=== PATIENT | male | born 1970 | race Caucasian/White ===

== ENCOUNTER 2021-03-06 01:33 | Outpatient (CLI) | payer BC, SELFPAY ==
--- NOTE | 2021-03-06 | DI.US_ITS ---
Exam(s) US RENAL EXAM: US RENAL CLINICAL HISTORY: NEPHROLITHIASIS, N20.0 TECHNIQUE: Ultrasound of both kidneys performed using standard protocol. COMPARISON: No exams were available for comparison FINDINGS: RIGHT KIDNEY: Measures 13.9 cm in length. No cysts evident. Normal cortical thickness and corticomedullary differen tiation .No solid masses There are echogenic foci measuring 2 and 4 millimeters in the mid and upper pole. These may represen t small calculi. There also slight prominence of the infundibulum I of the right kidney. LEFT KIDNEY: Measures 12.4 cm in length. No cysts evident. Normal cortical thickness and corticomedullary differe ntiaion. No solids masses. No intrarenal calculi nor hydonephrosis. URINARY BLADDER: Prevoid volume is 277 cc Postvoid volume is 20 cc No evidence of obvious bladder mass. No bladder diverticuli evident. Prostate gland was not able to be well seen on this study. Ureterovesical jets: Right ureterovesical jet was identified. Left was not. IMPRESSION: 1. No significant ultrasound findings in the left kidney 2. Two possible small nonobstructive calculi in the right kidney measuring up to 4 millimeters. The re is slight prominence of the upper right collecting system. 3. 20 cc residual postvoid volume in the urinary bladder. DATA REPOSITORY:
--- NOTE | 2021-03-06 11:28 | DI.RAD_ITS ---
Exam(s) XR ABDOMEN FLAT PLATE EXAM: XR ABDOMEN FLAT PLATE CLINICAL HISTORY: NEPHROLITHIASIS, N20.0. TECHNIQUE: 2D digital imaging was performed. COMPARISON: No exams were available for comparison FINDINGS: Bowel gas pattern is nonspecific in the supine position. No radiopaque calculi seen over the left ki dney. There are 3 contiguous 4 millimeter calculi seen projected over the medial aspect of the right kidney, probably in the upper right ureter or ureteropelvic junction. In addition, there is another calcification in the right-side of the pelvis which measures 8 x 6 millimeters. This may be a calcu nancy at the right ureterovesical junction. There are no calculi seen in the left side of the pelvis Regional bones appear unremarkable. IMPRESSION: Multiple right-sided calculi as described above. Probably renal calculi/ureteral calculi but cannot exclude the possibly that these are gallstones. If clinically indicated noninfused CT scan of the ab domen pelvis can be performed for added specificity. DATA REPOSITORY: RADIATION DOSE DELIVERED:
== END 2021-03-06 01:53 ==
PROVIDERS: Visit Provider Urology
DX: N20.0 Calculus of kidney (principal)
CPT/HCPCS: 76770; 74018

== ENCOUNTER 2021-03-21 08:10 | Outpatient (CLI) | payer BC, SELFPAY ==
--- NOTE | 2021-03-21 08:00 | DI.RAD_ITS ---
Exam(s) XR HIP LT COMPLETE AP PELVIS EXAM: XR HIP LT COMPLETE AP PELVIS INDICATION: L hip pain. COMPARISON: No exams were available for comparison TECHNIQUE: 2D digital imaging was performed. AP and frogleg lateral view. FINDINGS: The hip joint spaces are well maintained. There is mild bilateral acetabular spurring superiorly. T he SI joints and pubic symphysis are unremarkable. No joint space or soft tissue calcifications are seen. IMPRESSION: Mild degenerative changes of both hips. DATA REPOSITORY: RADIATION DOSE DELIVERED:
== END 2021-03-21 08:11 | disposition home or self-care (01) ==
LOC: DIORS 08:10
PROVIDERS: Visit Provider Physician Assistant
DX: M25.552 Pain in left hip (principal)
CPT/HCPCS: 73502

== ENCOUNTER 2021-05-05 02:18 | Outpatient (CLI) | payer BC, SELFPAY ==
[2021-05-05 11:24] LABS: Source Nasal/Nares
[2021-05-05 21:45] LABS: COVID-19 PCR Negative (Negative)
== END 2021-05-05 02:19 | disposition home or self-care (01) ==
LOC: LBO 02:18
PROVIDERS: Visit Provider Student in an Organized Health Care Education/Training Program
DX: Z20.822 Contact with and (suspected) exposure to COVID-19 (principal); Z01.818 Encounter for other preprocedural examination
CPT/HCPCS: 87635

== ENCOUNTER 2021-05-06 13:22 | Day surgery (SDC) | payer BC, SELFPAY ==
--- NOTE | 2021-05-06 11:13 | ANES.PREOP_ITS ---
General Info Date of Service Date Performed: 05/06/21 Height: 5 ft 8.5 in Weight: 99.79 kg Body Mass Index (BMI): 32.9 Surgical Procedure: Operation Date: 05/06/21 13:55 Proposed Procedures Side Surgeon p Excision of Mass rt thumb, lt foot Not Applicable Ez Zapata MD Meds Allergies and Home Medications Allergies Allergy/AdvReac Type Severity Reaction Status Date / Time shellfish derived Allergy Verified 05/06/21 14:04 Opioids - Morphine Analogues AdvReac nausea Verified 05/06/21 14:04 Home Medication Medication Instructions Recorded losartan 50 mg tablet 50 mg PO DAILY 03/21/21 milk thistle 250 mg PO DAILY 05/05/21 acetaminophen 1,000 mg PO Q8H PRN PRN #90 cap 05/06/21 ibuprofen 600 mg PO TID PRN #90 tab 05/06/21 Current Visit Medications: Current Medications Generic Name Dose Route Start Last Admin Trade Name Freq PRN Reason Stop Dose Admin Ringer's Solution 1,000 mls @ 80 mls/hr 05/06/21 06:00 IV 06/04/21 23:59 INFUSION BAILEY Cefazolin Sodium/Dextrose 2 gm in 50 mls @ 100 mls/hr 05/06/21 06:00 Ancef Duplex IVPB 06/04/21 23:59 PREOP BAILEY IV Miscellaneous Supplies 1 each 05/06/21 06:00 Iv Access IV 06/04/21 23:59 DIRECTED BAILEY Sodium Chloride 0 ml 05/06/21 06:00 Normal Saline Flush 10 Ml Syr IV 06/04/21 23:59 PRN PRN Sodium Chloride 0 ml 05/06/21 06:00 Normal Saline 10 Ml Vial IJ 06/04/21 23:59 DIRECTED PRN Sterile Water 0 ml 05/06/21 06:00 Water,Injection,Sterile 10 Ml Vial IJ 06/04/21 23:59 DIRECTED PRN PFSH Active Problems Active Problems: Problem Status Onset Code Ganglion cyst of finger of right hand M67.441 Digital mucous cyst of toe of left foot M67.472 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 Mass of right hand R22.31 Subcutaneous mass of left foot R22.42 Medical History Medical History Diverticulitis Fatty liver Ganglion cyst of finger of right hand R thumb webspace History of kidney stones HTN (hypertension) PONV (postoperative nausea and vomiting) Surgical History Surgical History Digital mucous cyst of toe of left foot Great toe S/P excision: 05/06/2021 History of bowel resection 2011 History of cystoscopy History of elbow surgery History of lithotripsy Hx of hernia repair Hx of LASIK Tobacco Smoking/Tobacco Use Status: Never Alcohol Alcohol Intake: never Substance Use Substance use: Never Substance use type: does not use Vital Signs and Lab Results Vital Signs Most Recent Vital Signs in EMR: Temp Pulse Resp BP Pulse Ox 36.8 C 68 16 154/98 H 97 05/06/21 13:45 05/06/21 13:45 05/06/21 13:45 05/06/21 13:45 05/06/21 13:45 Lab Results Blood Type / Crossmatch: No Data to Display Complete Blood Count: No Data to Display Complete Metabolic Panel: No Data to Display Liver Function Panel: No Data to Display Coagulation Panel: No Data to Display Cardiac Panel: No Data to Display Arterial Blood Gas: No Data to Display Venous Blood Gas: No Data to Display Pancreas Panel: No Data to Display Thyroid Panel: 2 No Data to Display Infectious Disease: Coronavirus (COVID-19)(PCR) Negative (Negative) 05/05/21 09:15 05/05/21 Coronavirus 2019 Source Nasal/Nares 05/05/21 09:15 05/05/21 Blood Cultures: No Data to Display Toxicology Panel: No Data to Display Anesthesia Assessment and Plan Anesthesia History Personal History: PONV Family History: No Family History of Anesthesia Complications Exercise Tolerance Exercise Tolerance: Metabolic Equivalents>4 Cardiac & Pulmonary Exam Cardiac Exam: Normal S1/S2 Heart Sounds Pulmonary Exam: Clear Bilateral Breath Sounds Airway Exam Known Difficult Airway: No Mallampati Class: 3 Mouth Opening: Narrow (< 3cm) Thyromental Distance: Greater than 3 cm Neck Range of Motion: Full ROM Neck Circumference: Normal Teeth Condition: Normal Dentition ASA Classification ASA Score: ASA 2 Emergency Case?: No NPO Status NPO Status: NPO Clears >2 hours, Solids >8 hours Anesthesia Plan Resuscitation Status: Full Code Anesthesia Technique: General Anesthesia Airway Planned: Natural Airway Monitors Used: Standard Monitors Preoperative Comments:: 51 yo male for thumb and foot mass removal. Sig PMHx: HTN (losartan), bowel resection, PONV, never smoker.
--- NOTE | 2021-05-06 12:35 | HPE_ITS ---
Date of service: 05/06/21 Assessment and Plan Assessment and plan (1) Digital mucous cyst of toe of left foot: Status: Acute Assessment and plan: Excision cyst left great toe. Details of surgery were discussed with patient as well as risks and pertinent anatomy. All questions were answered. History of Present Illness History of Present Illness Chief Complaint: Cyst left great toe and right thumb Narrative: Milad is a 51-year-old male who comes in today for an excision of the a cyst of the left great toe and of the right thumb. He has noticed these cysts for many months and they seem to interfere with certain activities, specifically when he is riding his motorcycle. When he tries to shift with his left foot he has pain over the cyst of his left great toe. When his is holding the handle bars it puts pressure over his right thumb in the area of the cyst causing discomfort. Since he has stopped riding his motorcycle the cyst of this thumb has subsided and he is unable to feel it at this time. The left great toe cyst has persisted over many months and therefor Dr. Zapata offers an excision of the left great toe. Pertinent Surgical Information Milad has a history of HTN which is controlled with losartan. Patient denies history of CVA, ND, angina, asthma, COPD, renal or liver disorders, hepatitis, bleeding disorders, diabetes, immune or thyroid disorders. No complications from anesthesia. Review of Systems Constitutional Constitutional: Denies fever(s) ENT Ears, Nose, Mouth, and Throat: Denies dizziness and Denies sore throat Cardiovascular Cardiovascular: Denies chest pain, Denies palpitations and Denies dyspnea Respiratory Respiratory: Denies cough and Denies dyspnea Gastrointestinal Gastrointestinal: Denies abdominal pain, Denies melena, Denies hematochezia, Denies diarrhea, Denies nausea and Denies vomiting Genitourinary Genitourinary: Denies hematuria and Denies dysuria Neurologic Neurologic: Denies dizziness Endocrine Endocrine: Denies palpitations [facility] Medical History (Updated 05/06/21 @ 13:58 by RANGEL Dias) Diverticulitis Fatty liver Ganglion cyst of finger of right hand R thumb webspace History of kidney stones HTN (hypertension) PONV (postoperative nausea and vomiting) Surgical History (Updated 05/06/21 @ 12:43 by RANGEL Dias) Digital mucous cyst of toe of left foot Great toe S/P excision: 05/06/2021 History of bowel resection 2011 History of cystoscopy History of elbow surgery History of lithotripsy Hx of hernia repair Hx of LASIK Social History Smoking/Tobacco Use Status: Never Smoking risk assessment performed?: Yes Alcohol Intake: never Drug use: Never Substance use type: does not use Do you feel safe at home: Yes Do you feel safe in your relationship?: Yes Meds Allergies and Home Medications Allergies Allergy/AdvReac Type Severity Reaction Status Date / Time shellfish derived Allergy Verified 05/05/21 12:11 Opioids - Morphine Analogues AdvReac nausea Verified 05/05/21 12:11 Home Medications Medication Instructions Recorded Confirmed Type losartan 50 mg tablet 50 mg PO DAILY 03/21/21 05/05/21 History milk thistle 250 mg PO DAILY 05/05/21 05/05/21 History Exam Const General: cooperative and no acute distress Orientation: alert and awake HENKY Head: normocephalic and atraumatic Eyes Conjunctivae: conjunctivae normal Sclera: sclerae normal Resp Effort & Inspection: normal respiratory effort Auscultation: clear to auscultation bilaterally and no wheezes Cardio Rate: regular rate Rhythm: regular rhythm Heart Sounds: S1 normal, S2 normal and no murmurs GI Palpation: soft, no hepatosplenomegaly and nontender Auscultation: normal bowel sounds
[2021-05-06 13:45] VITALS: BP 154/98; PULSE 68; RESP 16; TEMP 36.8; O2SAT 97
[2021-05-06 14:08] VITALS: BMI 32.9
[2021-05-06] MEDS: Lactated Ringers 1,000 ML 80 ML IV (14:08)
--- NOTE | 2021-05-06 14:21 | W.PM.DSUDISC ---
Documented by User: RANGEL Dias 05/06/21 14:26 Discharge Plan Disposition Patient Disposition: HOME Condition: Good Discharge Details Reason For Visit: Excision cyst left great toe Attending Provider: Ez Zapata Primary Care Provider: Unknown,Unknown Home Meds and New Rx's Prescriptions: New ibuprofen 600 mg tablet 600 mg PO TID PRN (Reason: pain) Qty: 90 RF: 0 acetaminophen 500 mg capsule 1,000 mg PO Q8H PRN PRNQty: 90 RF: 0 Continued losartan 50 mg tablet 50 mg PO DAILY RF: 0 milk thistle 500 mg Capsule 250 mg PO DAILY RF: 0 Discharge Instructions Additional Instructions: Cyst Excision of Toe Discharge Instructions Activity: You may weight bear as tolerated. You should keep the leg elevated as much as possible. You should wear the post op sandal when you are up and mobilizing, but may remove it when not. You may also remove the post op sandal with ambulation as tolerated. Dressings: You should keep the initial dressing on for at least 3 days. After 3 days, you may remove it and get it wet in the shower. You may keep the incision covered with a Band-Aid until follow-up. There will be two suture tails coming out of the skin. These will be trimmed at your follow-up visit. Medications: - You should take Tylenol and Ibuprofen for pain control. Follow-up: 2 weeks Referrals: Ez Zapata MD [ [facility] STAFF PHYSICIAN] - Equipment/Supplies: Splint Activity:: Activity as Tolerated Remove Dressings/Wound Care:: 72 hours Shower/Bathe:: 72 hours Diet:: As Tolerated Discharge Orders Discharge Orders: Discharge Order (Routine); Ordered 05/06/21 Ordered By: Mick London DS: Diagnosis Discharge Diagnosis (1) Digital mucous cyst of toe of left foot: Status: Acute Documented by User: Ez Zapata MD 05/06/21 14:51 Discharge Plan Disposition Patient Disposition: HOME Condition: Good Discharge Details Reason For Visit: Excision cyst left great toe Attending Provider: Ez Zapata Primary Care Provider: Unknown,Unknown Home Meds and New Rx's Prescriptions: New ibuprofen 600 mg tablet 600 mg PO TID PRN (Reason: pain) Qty: 90 RF: 0 acetaminophen 500 mg capsule 1,000 mg PO Q8H PRN PRNQty: 90 RF: 0 Continued losartan 50 mg tablet 50 mg PO DAILY RF: 0 milk thistle 500 mg Capsule 250 mg PO DAILY RF: 0 Discharge Instructions Additional Instructions: Cyst Excision of Toe Discharge Instructions Activity: You may weight bear as tolerated. You should keep the leg elevated as much as possible. You should wear the post op sandal when you are up and mobilizing, but may remove it when not. You may also remove the post op sandal with ambulation as tolerated. Dressings: You should keep the initial dressing on for at least 3 days. After 3 days, you may remove it and get it wet in the shower. You may keep the incision covered with a Band-Aid until follow-up. There will be two suture tails coming out of the skin. These will be trimmed at your follow-up visit. Medications: - You should take Tylenol and Ibuprofen for pain control. Follow-up: 2 weeks Referrals: Ez Zapata MD [ [facility] STAFF PHYSICIAN] - Equipment/Supplies: Splint Activity:: Activity as Tolerated Remove Dressings/Wound Care:: 72 hours Shower/Bathe:: 72 hours Diet:: As Tolerated Discharge Orders Discharge Orders: Discharge Order (Routine); Ordered 05/06/21 Ordered By: Mick London
[2021-05-06] MEDS: ceFAZolin 2 GM/50 ML BAG IVPB (14:27)
[2021-05-06 14:54] VITALS: BP 123/83; PULSE 76; RESP 16; TEMP 36.9; O2SAT 96
--- NOTE | 2021-05-06 15:03 | W.ANESPOSTOP ---
Postoperative Evaluation Date, Time and Location Date Performed: 05/06/21 Time Performed: 15:03 Patient Location: Day Surgery Unit Vital Signs Most Recent Imported Vital Signs: Most Recent Vital Signs Temp Pulse Resp BP Pulse Ox 36.8 C 68 16 154/98 H 97 05/06/21 13:45 05/06/21 13:45 05/06/21 13:45 05/06/21 13:45 05/06/21 13:45 Pain Score Most Recent Pain Score: Most Recent Pain Score Pain Level 0 05/06/21 13:45 Assessment Mental Status: Awake (Alert & Oriented to Patient Baseline) Airway and Respiratory Function: Patent airway with normal (patient baseline) respiratory exam Cardiovascular Function: Hemodynamically Stable Hydration Status: Adequately Hydrated Nausea & Vomiting: No Nausea or Vomiting Pain: Pain is tolerable per patient Peripheral Nerve Block: Patient did not receive a nerve block
[2021-05-06 15:35] VITALS: BP 129/75; PULSE 72; RESP 16; TEMP 36.1; O2SAT 98
--- NOTE | 2021-05-06 21:24 | ROE_ITS ---
Date of service: 05/06/21 Time of Service: 14:50 Operative Note Operative Note DATE OF PROCEDURE: 05/06/21 PRE-OP DIAGNOSIS: Left Foot Mass POST-OP DIAGNOSIS: same Removal of loose bony fragment - left foot PROCEDURE: Excision of loose body from Left Foot SURGEON: Ez Zapata ANESTHESIA TYPE: MAC Refer to Anesthesia Record ESTIMATED BLOOD LOSS: 0 PATHOLOGY: none sent TOURNIQUET TIME: 0 COMPLICATIONS: None Patient was transported to: same day Patient's condition: stable Indications: Milad is a 51yo male who has had a painful loose body in the foot at the level of the great toe MTP joint around the EHL tendon. It continued to cause pain and dysfunction. Given its persistence and interference on a daily basis, I offered excision. I reviewed the risks of the procedure to include bleeding, infection, pain, stiffness, recurrence, damage to nerves and vessels. Despite these risks, he elected to proceed. Findings: There is a mobile piece of bone identified under the EHL tendon which was moving around the capsule of the first MTP joint. It was removed without difficulty. Procedure Description: Milad was greeted the preoperative holding area. His identity was confirmed the correct side was identified and marked. The consent was reviewed the patient and signed. He was having difficulties from mass within the right thumb. However, he was no longer able to palpate and was not b othering currently so the surgery was only for the left foot. He was taken back to the operating room. He is placed in supine position. A MAC anesthetic was administered. Prophylactic antibiotics in the form of cefazolin were given. A timeout was performed for safe surgery. Longitudinal incision was made over the lateral border of the EHL tendon. This proposed incision site was injected with 1% lidocaine with epinephrine. The skin was incised sharply for approximate 2 cm. Blunt dissection was carried out the skin. The mass was palpable and was quite mobile. At this point with the subtenons tissues dissected and retracted with a Heiss retractor, it was evident that the mass was under the capsule the first MTP joint and the retinaculum of the EHL tendon. Therefore, I made a small incision into the retinaculum adjacent to the EHL tendon. This was made only for 3 or 4 mm. Once inside this layer the loose body was palpable and delivered up to this defect. I was able to remove this bony piece from the toe. There is no significant attachments. It was removed out difficulty. This was then irrigated. A single suture was placed into the extensor vasquez with a #2-0 Vicryl. The skin was then closed with a 4-0 Monocryl reinforced with skin glue. Suture tails were left outside of the wound to avoid any knots and prominence. The wound was dressed with 4 x 4 gauze and an Parminder wrap. He was placed into a postop shoe. At the end of the case all counts were correct. He was transferred back to the PACU in stable condition.
== END 2021-05-06 15:56 | disposition home or self-care (01) ==
PROVIDERS: Visit Provider Student in an Organized Health Care Education/Training Program
PROC: (CPT 28192; principal; 2021-05-06 13:45)
DX: M67.874 Other specified disorders of tendon, left ankle and foot (principal); I10 Essential (primary) hypertension; K76.0 Fatty (change of) liver, not elsewhere classified
CPT/HCPCS: 28192; J0690; J1100; J2001; J2405

== ENCOUNTER 2021-06-17 18:48 | Outpatient (REF) | payer BC, SELFPAY ==
[2021-06-17 23:06] LABS: Creatinine,Urine 73.76 mg/dL; Sodium, Urine 70 mmol/L
[2021-06-17 23:11] LABS: Total Volume 2400 ml
[2021-06-17 23:12] LABS: CLEAVED CELLS 168 mmol/24h (40-220); Creatinine,24hr Ur 1.77 g/24hr (0.95-2.49)
[2021-06-19 08:46] LABS: Calcium Urine 13.5 mg/dL (See Note); Calcium Urine 24 hr 324 mg/24hrs (100-300); Timed Urine Volume 2400 mL
[2021-06-19 08:49] LABS: Timed Urine Volume 2400 mL; Uric Acid Urine 29.1 mg/dL (See Note); Uric Acid Urine 24hr 698 mg/24hrs (250-750)
[2021-06-19 08:50] LABS: Phosphorus Urine 52.7 mg/dL (See Note); Phosphorus Urine 24hr 1.3 g/24hrs (0.4-1.3); Timed Urine Volume 2400 mL
[2021-06-19 08:52] LABS: Magnesium 24hr Urine 153.6 mg/24hrs (12.0-192.0); Magnesium Random Urine 6.4 mg/dL (See Note); Timed Urine Volume 2400 mL
[2021-06-20 12:50] LABS: Oxalate, U 0.36 mmol/24 h (0.11-0.46); Oxalate, U 31.7 mg/24 h (9.7 - 40.5); Urine Volume 2400 mL
[2021-07-02 14:44] LABS: Total Volume 2400 mL
[2021-07-02 14:45] LABS: Citric Acid, 24hr Urine 947 mg/24 h
[2021-07-02 14:46] LABS: Citric Acid/Creat Ratio 520
[2021-07-02 14:47] LABS: Creatinine, 24 hr Urine 1.8 g/24 h
== END 2021-06-17 18:49 | disposition home or self-care (01) ==
LOC: LBN 18:48
PROVIDERS: Visit Provider Urology
DX: N20.0 Calculus of kidney (principal)
CPT/HCPCS: 82507; 83735; 81050; 82340; 82570; 83945; 84105; 84300; 84560

== ENCOUNTER 2021-07-14 02:40 | Outpatient (CLI) | payer BC, SELFPAY ==
[2021-07-14 13:39] LABS: Calcium 8.9 mg/dL (8.5-10.1)
[2021-07-14 13:40] LABS: Anion Gap 7.1 mmol/L (3-11); BUN 16 mg/dL (7-18); CO2 31.9 mmol/L (21.0-32.0); CREATININE 0.9 mg/dL (0.70-1.30); Chloride 103 mmol/L (98-107); Glucose 150 mg/dL (74-106); Potassium 3.8 mmol/L (3.5-5.1); Sodium 142 mmol/L (136-145)
== END 2021-07-14 02:41 | disposition home or self-care (01) ==
PROVIDERS: Visit Provider Urology
DX: R82.994 Hypercalciuria (principal); N20.0 Calculus of kidney
CPT/HCPCS: 36415; 80048; 82310

== ENCOUNTER 2021-09-05 04:02 | Outpatient (CLI) | payer BC, SELFPAY ==
[2021-09-05 12:41] LABS: Anion Gap 9.8 mmol/L (3-11); BUN 22 mg/dL (7-18); CO2 30.2 mmol/L (21.0-32.0); Calcium 9.9 mg/dL (8.5-10.1); Chloride 99 mmol/L (98-107); Glucose 106 mg/dL (74-106); Potassium 3.8 mmol/L (3.5-5.1); Sodium 139 mmol/L (136-145)
== END 2021-09-05 04:03 | disposition home or self-care (01) ==
PROVIDERS: Visit Provider Urology
DX: R82.994 Hypercalciuria (principal)
CPT/HCPCS: 36415; 80048

== ENCOUNTER 2021-11-03 08:18 | Outpatient (REF) | payer BC, SELFPAY ==
[2021-11-03 11:09] LABS: CLEAVED CELLS 224 mmol/24h (40-220); Creatinine,24hr Ur 1.77 g/24hr (0.95-2.49); Creatinine,Urine 63.05 mg/dL; Sodium, Urine 80 mmol/L; Total Volume 2800 ml
[2021-11-04 08:50] LABS: Calcium Urine 7.2 mg/dL (See Note); Calcium Urine 24 hr 202 mg/24hrs (100-300); Timed Urine Volume 2800 mL
[2021-11-04 08:54] LABS: Magnesium 24hr Urine 103.6 mg/24hrs (12.0-192.0); Magnesium Random Urine 3.7 mg/dL (See Note); Timed Urine Volume 2800 mL
[2021-11-04 08:55] LABS: Timed Urine Volume 2800 mL; Uric Acid Urine 24.5 mg/dL (See Note); Uric Acid Urine 24hr 686 mg/24hrs (250-750)
[2021-11-04 09:01] LABS: Phosphorus Urine 48.5 mg/dL (See Note); Phosphorus Urine 24hr 1.4 g/24hrs (0.4-1.3); Timed Urine Volume 2800 mL
[2021-11-06 14:38] LABS: Oxalate, U 17.6 mg/24 h (9.7 - 40.5); Urine Volume 2800 mL
[2021-11-09 03:23] LABS: Citric Acid, 24hr Urine 549 mg/24 h (100-1300); Citric Acid/Creat Ratio 292 mg/g creat (60-660); Creatinine, 24 hr Urine 1.88 g/24 h (0.50-2.15); Total Volume 2800 mL
== END 2021-11-03 08:19 | disposition home or self-care (01) ==
LOC: LBN 08:18
PROVIDERS: Visit Provider Urology
DX: R82.994 Hypercalciuria (principal)
CPT/HCPCS: 82507; 83735; 81050; 82340; 82570; 83945; 84105; 84300; 84560